=== PATIENT | male | born 1955 | race Caucasian/White ===

== ENCOUNTER 2017-08-31 13:45 | Emergency (ER) | payer MEDICAID, OTHER ==
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
[2017-08-31] MEDS ORDERED: Iopamidol 612 MG/ML 100 ML Bottle IVPUSH ONE (14:29)
[2017-08-31] MEDS ORDERED: Lidocaine 1% with EPINEPHrine 1:100,000 20 ML MDV INJECT ONE ×2 (14:35→16:53)
[2017-08-31] MEDS: Sodium Chloride 0.9% 10 ML Syringe FLUSH ONE ×2 (14:38→14:52)
--- NOTE | 2017-08-31 15:32 | CT ---
CT facial bones Technique: Multiple axial sections through the facial bones were obtained. Reconstructed coronal and sagittal images were reviewed. Comparison: No prior study. Findings: Mild mucosal thickening is seen within the right frontal and scattered within the ethmoid sinuses. Mild mucosal thickening is noted within the left maxillary sinus and moderate mucosal thickening is seen within the right maxillary sinus. Mastoid sinuses and middle ear cavities are clear. No fracture is identified. Degenerative change is partially seen within the cervical spine. Impression: 1. Sinus findings which are likely pre-existing and chronic. 2. No acute abnormality is identified on CT study of the facial bones. Diagnostic code #2
[2017-08-31] MEDS ORDERED: Diphtheria,Pertussis(Acell),Tetanus Vaccine 0.5 ML SDV IM ONE (15:44)
[2017-08-31] MEDS ORDERED: Lidocaine 1% with EPINEPHrine 1:100,000 20 ML MDV ONE (16:17)
== END 2017-08-31 17:09 | disposition home or self-care (01) ==
LOC: JD.ED 13:45
DX: S02.5XXA Fracture of tooth (traumatic), initial encounter for closed fracture (principal); S01.512A Laceration without foreign body of oral cavity, initial encounter; E11.9 Type 2 diabetes mellitus without complications; Z87.891 Personal history of nicotine dependence; Z79.02 Long term (current) use of antithrombotics/antiplatelets; Z79.899 Other long term (current) drug therapy; Z88.5 Allergy status to narcotic agent; Z23 Encounter for immunization; W22.8XXA Striking against or struck by other objects, initial encounter; Y99.0 Civilian activity done for income or pay
CPT/HCPCS: 41250; 70487; 90471; 90715; 99284; J7050; Q9967; 12011

== ENCOUNTER 2017-09-12 12:02 | Emergency (ER) | payer OTHER ==
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
== END 2017-09-12 13:21 | disposition home or self-care (01) ==
LOC: JD.ED 12:02
DX: S20.211A Contusion of right front wall of thorax, initial encounter (principal); S00.83XA Contusion of other part of head, initial encounter; R53.83 Other fatigue; I10 Essential (primary) hypertension; E11.9 Type 2 diabetes mellitus without complications; Z88.6 Allergy status to analgesic agent; Z88.5 Allergy status to narcotic agent; Z79.899 Other long term (current) drug therapy; Z87.891 Personal history of nicotine dependence; W22.8XXA Striking against or struck by other objects, initial encounter
CPT/HCPCS: 99282; 99283